=== PATIENT | male | born 1940 | race Caucasian/White ===

== ENCOUNTER 2017-10-26 13:10 | Emergency (ER) | payer OTHER ==
[~2017-10-26] VITALS: Ht 175.3 cm; Wt 133.6 kg
[2017-10-26 16:38] VITALS: BP 142/59
== END 2017-10-26 18:14 ==
LOC: EME 13:10
PROC: 0T2BX0Z Change Drainage Device in Bladder, External Approach (ICD-10-PCS; principal; 2017-10-26)
DX: T83.090A Other mechanical complication of cystostomy catheter, initial encounter (principal); N31.9 Neuromuscular dysfunction of bladder, unspecified; G89.29 Other chronic pain; Z86.12 Personal history of poliomyelitis; E66.01 Morbid (severe) obesity due to excess calories; Z68.41 Body mass index [BMI] 40.0-44.9, adult; Z85.46 Personal history of malignant neoplasm of prostate; Z92.3 Personal history of irradiation
CPT/HCPCS: 99281; 99285

== ENCOUNTER 2017-11-02 12:12 | Inpatient (IN) | payer OTHER ==
[~2017-11-02] VITALS: Ht 176.5 cm; Wt 127.8 kg
[2017-11-02 12:46] LABS: HEMATOCRIT 36.5 % (38.0-50.0); MCH 29.8 PG (29.0-34.0); MCHC 32.9 G/DL (30.0-36.0); MCV 90.6 FL (86-99); PLATELET COUNT 244 K/uL (156-360); RBC DIS.WIDTH-CV 13.5 % (11.8-14.6); RBC DIS.WIDTH-SD 44.4 % (39-53); RED BLOOD COUNT 4.03 M/uL (4.00-5.50); WHITE BLOOD COUNT 9.1 K/uL (4.1-10.2)
[2017-11-02 12:52] LABS: INTER. NORMALIZED RATIO 1.1
[2017-11-02 12:55] LABS: PTT 29.5 SEC (25-37)
[2017-11-02 12:58] LABS: CHLORIDE 102 mEq/L (99-109); POTASSIUM 4.3 mEq/L (3.7-5.4); SODIUM 142 mEq/L (136-147)
[2017-11-02 13:00] LABS: GLUCOSE 109 mg/dL (70-99)
[2017-11-02 13:04] LABS: CREATININE 0.6 mg/dL (0.6-1.3); GFR ESTIMATE (CALCULATED) > 59 mL/min/ (58.99-99999); UREA NITROGEN (BUN) 14 mg/dL (9-23)
[2017-11-02 13:06] LABS: CREATINE KINASE 17 IU/L (1-294)
[2017-11-02 13:07] LABS: TROP-I INTERPRETATION NEGATIVE; TROPONIN-I < 0.01 ng/mL (0.0-0.30)
[2017-11-02] MEDS ORDERED: K-DUR20 MEQ PO (14:58)
[2017-11-02] MEDS ORDERED: CATAPRES-TTS 11 EACH TD (14:59)
[2017-11-02] MEDS ORDERED: SPIRIVA18 MCG IH (15:00)
[2017-11-02] MEDS ORDERED: LASIX20 MG PO (15:00)
[2017-11-02] MEDS ORDERED: LOPRESSOR50 MG PO (15:01)
[2017-11-02] MEDS ORDERED: ASPIRIN325 MG PO (15:01)
[2017-11-02] MEDS ORDERED: CARDIZEM CD,CA240 MG PO (15:02)
[2017-11-02] MEDS ORDERED: PROBIOTIC250 MG PO (15:03)
[2017-11-02] MEDS ORDERED: COZAAR100 MG PO (15:03)
[2017-11-02] MEDS ORDERED: TYLENOL EXTRA500 MG PO (15:04)
[2017-11-02] MEDS ORDERED: LIPITOR10 MG PO (15:05)
[2017-11-02] MEDS ORDERED: AZELASTINE HCL6 ML BOTH EYES (15:06)
[2017-11-02] MEDS ORDERED: PRILOSEC20 MG PO (15:07)
[2017-11-02] MEDS ORDERED: PROVENTIL,2.5 MG/3 M IH (15:08)
[2017-11-02] MEDS ORDERED: ULTRAM50 MG PO (15:10)
[2017-11-02] MEDS ORDERED: MILK OF MAGN PO (15:10)
[2017-11-02] MEDS ORDERED: POLY-VITAMIN1 EACH PO (15:17)
[2017-11-02 18:13] VITALS: BP 181/77
[2017-11-02 19:44] VITALS: BP 169/72
[2017-11-02 23:54] VITALS: BP 146/74
[2017-11-03 03:47] VITALS: BP 139/65
[2017-11-03 07:15] VITALS: BP 142/78
[2017-11-03 07:54] VITALS: BP 164/74
[2017-11-03 11:25] VITALS: BP 145/67
[2017-11-04 04:20] VITALS: BP 145/65
[2017-11-04 05:49] LABS: HEMATOCRIT 32.7 % (38.0-50.0); HEMOGLOBIN 10.8 G/DL (12.5-16.6); MCV 90.6 FL (86-99)
[2017-11-04 08:30] VITALS: BP 140/78
[2017-11-04 12:05] VITALS: BP 140/88
[2017-11-04 16:35] VITALS: BP 142/78
[2017-11-04 19:58] VITALS: BP 166/72
[2017-11-04 23:35] VITALS: BP 137/63
[2017-11-05 04:12] VITALS: BP 159/70
[2017-11-05 05:52] LABS: BASOPHIL (%) 0.4 % (0-1); EOSINOPHIL (%) 2.7 % (0-5); EOSINOPHIL COUNT 0.2 K/uL (0-0.3); HEMATOCRIT 28.7 % (38.0-50.0); HEMOGLOBIN 9.4 G/DL (12.5-16.6); IMMATURE GRANULOCYTE (%) 0.3 % (0.0-0.7); LYMPHOCYTE (%) 21.4 % (15-42); LYMPHOCYTE COUNT 1.7 K/uL (1.0-2.8); MCHC 32.8 G/DL (30.0-36.0); MCV 91.7 FL (86-99); MONOCYTE (%) 12.3 % (3-12); NEUTROPHIL (%) 62.9 % (45-76); NEUTROPHIL COUNT 4.9 K/uL (1.8-6.4); PLATELET COUNT 225 K/uL (156-360); RBC DIS.WIDTH-SD 44.8 % (39-53); WHITE BLOOD COUNT 7.8 K/uL (4.1-10.2)
[2017-11-05 05:53] LABS: RED BLOOD COUNT 3.13 M/uL (4.00-5.50)
[2017-11-05 06:19] LABS: CHLORIDE 103 MEQ/L (99-109); CREATININE 0.5 MG/DL (0.6-1.3); GFR ESTIMATE (CALCULATED) > 59 mL/min/ (58.99-99999); GLUCOSE 117 mg/dL (70-99); POTASSIUM 3.8 MEQ/L (3.7-5.4); SODIUM 138 MEQ/L (136-147); UREA NITROGEN (BUN) 7 mg/dL (9-23)
[2017-11-05 08:53] VITALS: BP 148/68
[2017-11-05 16:00] VITALS: BP 158/62
[2017-11-05 19:47] VITALS: BP 139/61
[2017-11-05 23:33] VITALS: BP 129/60
[2017-11-06 04:11] VITALS: BP 143/64
[2017-11-06 05:57] LABS: BASOPHIL (%) 0.3 % (0-1); EOSINOPHIL (%) 3.1 % (0-5); EOSINOPHIL COUNT 0.3 K/uL (0-0.3); HEMATOCRIT 27.8 % (38.0-50.0); HEMOGLOBIN 9.1 G/DL (12.5-16.6); IMMATURE GRANULOCYTE (%) 0.3 % (0.0-0.7); LYMPHOCYTE (%) 19.7 % (15-42); LYMPHOCYTE COUNT 1.8 K/uL (1.0-2.8); MCH 29.7 PG (29.0-34.0); MCHC 32.7 G/DL (30.0-36.0); MCV 90.8 FL (86-99); MONOCYTE (%) 11.5 % (3-12); NEUTROPHIL (%) 65.1 % (45-76); NEUTROPHIL COUNT 5.8 K/uL (1.8-6.4); PLATELET COUNT 238 K/uL (156-360); RBC DIS.WIDTH-CV 14.2 % (11.8-14.6); RBC DIS.WIDTH-SD 46.1 % (39-53); RED BLOOD COUNT 3.06 M/uL (4.00-5.50)
[2017-11-06 06:21] LABS: CHLORIDE 101 MEQ/L (99-109); CREATININE 0.5 MG/DL (0.6-1.3); GFR ESTIMATE (CALCULATED) > 59 mL/min/ (58.99-99999); GLUCOSE 115 mg/dL (70-99); POTASSIUM 3.6 MEQ/L (3.7-5.4); SODIUM 137 MEQ/L (136-147); UREA NITROGEN (BUN) 10 mg/dL (9-23)
[2017-11-06 08:00] VITALS: BP 148/65
[2017-11-06 12:31] VITALS: BP 130/60
[2017-11-06] MEDS ORDERED: SENNA PLUS TAB1 EACH PO (13:08)
[2017-11-06] MEDS ORDERED: HYDROCODON-ACE1 EAC9 PO (13:09)
[2017-11-06] MEDS ORDERED: FERROUS SULFAT324 M1 PO (13:11)
[2017-11-06] MEDS ORDERED: XARELTO10 MG PO (13:13)
[2017-11-06 16:30] VITALS: BP 138/68
[2017-11-06 20:12] VITALS: BP 142/57
[2017-11-07] VITALS (7 sets, daily range): BP systolic 133–164; BP diastolic 50–74
[2017-11-08 03:42] VITALS: BP 134/63
[2017-11-08 07:55] VITALS: BP 118/58
[2017-11-08 12:18] VITALS: BP 122/64
[2017-11-08 16:30] VITALS: BP 128/74
[2017-11-08 20:00] VITALS: BP 133/62
[2017-11-09] VITALS: BP 151/67
[2017-11-09 03:58] VITALS: BP 136/63
[2017-11-09 11:30] VITALS: BP 134/62
[2017-11-09 16:12] VITALS: BP 132/68
[2017-11-09 19:37] VITALS: BP 143/64
[2017-11-09 23:40] VITALS: BP 139/65
[2017-11-10 03:51] VITALS: BP 140/63
[2017-11-10 08:17] VITALS: BP 134/60
[2017-11-10 09:51] LABS: CHLORIDE 101 MEQ/L (99-109); CREATININE 0.5 MG/DL (0.6-1.3); GFR ESTIMATE (CALCULATED) > 59 mL/min/ (58.99-99999); GLUCOSE 161 mg/dL (70-99); POTASSIUM 3.7 MEQ/L (3.7-5.4); SODIUM 139 MEQ/L (136-147); UREA NITROGEN (BUN) 13 mg/dL (9-23)
[2017-11-10 12:13] VITALS: BP 128/68
[2017-11-10 15:49] VITALS: BP 134/72
[2017-11-10 20:15] VITALS: BP 143/65
[2017-11-10 23:59] VITALS: BP 155/72
[2017-11-11 04:16] VITALS: BP 141/71
[2017-11-11 06:21] LABS: HEMOGLOBIN 9.1 G/DL (12.5-16.6); MCH 28.4 PG (29.0-34.0); MCHC 31.4 G/DL (30.0-36.0); MCV 90.6 FL (86-99); RBC DIS.WIDTH-CV 13.8 % (11.8-14.6); RBC DIS.WIDTH-SD 45.9 % (39-53); WHITE BLOOD COUNT 8.7 K/uL (4.1-10.2)
[2017-11-11 06:23] LABS: PLATELET COUNT 340 K/uL (156-360)
[2017-11-11 06:48] LABS: ALBUMIN 3.5 G/DL (3.2-4.8); ALKALINE PHOSPHATASE 122 IU/L (3-129); ALT (GPT) 21 IU/L (3-49); AST (GOT) 16 IU/L (2-34); CHLORIDE 101 MEQ/L (99-109); CREATININE 0.5 MG/DL (0.6-1.3); GFR ESTIMATE (CALCULATED) > 59 mL/min/ (58.99-99999); POTASSIUM 3.9 MEQ/L (3.7-5.4); SODIUM 137 MEQ/L (136-147); TOTAL BILIRUBIN 0.6 MG/DL (0.0-1.0); TOTAL PROTEIN 5.7 G/DL (6.4-8.3); UREA NITROGEN (BUN) 12 mg/dL (9-23)
[2017-11-11 06:49] LABS: GLUCOSE 116 mg/dL (70-99)
[2017-11-11 07:48] VITALS: BP 126/66
[2017-11-11 09:17] LABS: APPEARANCE SL.HAZY ((CLEAR)); BILIRUBIN NEGATIVE; BLOOD MODERATE; COLOR YELLOW ((YELLOW)); GLUCOSE (STRIP) NEGATIVE; KETONES NEGATIVE; LEUKOCYTES SMALL; NITRITE NEGATIVE; PROTEIN (STRIP) 100; SPECIFIC GRAVITY 1.011 (1.000-1.030); UROBILINOGEN 0.2 MG/DL (0.2-1.0)
[2017-11-11 09:28] LABS: BACTERIA RARE /HPF; CALCIUM OXALATE CRYSTALS 1+ /HPF; EPITHELIAL CELLS RARE /HPF; MUCUS 1+ /LPF; RED BLOOD CELLS 0-5 /HPF (0-5); UCUL ADDED? YES
[2017-11-11 16:28] VITALS: BP 130/58
[2017-11-12 00:19] VITALS: BP 126/60
[2017-11-12 08:00] VITALS: BP 140/67
[2017-11-13 00:31] VITALS: BP 156/67
[2017-11-13 08:19] VITALS: BP 144/70
[2017-11-13 16:44] VITALS: BP 144/78
[2017-11-14] VITALS: BP 129/60
[2017-11-14 08:34] VITALS: BP 138/62
[2017-11-14 17:29] VITALS: BP 158/52
[2017-11-14 20:21] VITALS: BP 140/80
[2017-11-14 23:45] VITALS: BP 137/70
[2017-11-15 08:30] VITALS: BP 120/60
[2017-11-15 16:04] VITALS: BP 140/62
[2017-11-15 23:30] VITALS: BP 139/61
[2017-11-16 07:30] VITALS: BP 131/60
[2017-11-16 15:02] VITALS: BP 120/60
[2017-11-17 00:43] VITALS: BP 127/60
[2017-11-17 06:08] LABS: BASOPHIL (%) 0.4 % (0-1); EOSINOPHIL (%) 4.3 % (0-5); EOSINOPHIL COUNT 0.4 K/uL (0-0.3); HEMATOCRIT 30.6 % (38.0-50.0); HEMOGLOBIN 9.7 G/DL (12.5-16.6); IMMATURE GRANULOCYTE (%) 0.4 % (0.0-0.7); LYMPHOCYTE (%) 18.5 % (15-42); LYMPHOCYTE COUNT 1.9 K/uL (1.0-2.8); MCH 28.3 PG (29.0-34.0); MCHC 31.7 G/DL (30.0-36.0); MCV 89.2 FL (86-99); MONOCYTE (%) 7.8 % (3-12); MONOCYTE COUNT 0.8 K/uL (0-0.8); NEUTROPHIL (%) 68.6 % (45-76); NEUTROPHIL COUNT 6.9 K/uL (1.8-6.4); PLATELET COUNT 323 K/uL (156-360); RBC DIS.WIDTH-SD 45.4 % (39-53); RED BLOOD COUNT 3.43 M/uL (4.00-5.50); WHITE BLOOD COUNT 10.1 K/uL (4.1-10.2)
[2017-11-17 06:34] LABS: CHLORIDE 104 MEQ/L (99-109); CREATININE 0.4 MG/DL (0.6-1.3); GFR ESTIMATE (CALCULATED) > 59 mL/min/ (58.99-99999); GLUCOSE 121 mg/dL (70-99); SODIUM 141 MEQ/L (136-147); UREA NITROGEN (BUN) 13 mg/dL (9-23)
[2017-11-17 08:13] VITALS: BP 170/62
[2017-11-17 15:53] VITALS: BP 150/65
[2017-11-18 00:09] VITALS: BP 126/60
[2017-11-18 08:22] VITALS: BP 142/64
[2017-11-18 16:45] VITALS: BP 139/63
== END 2017-11-18 17:47 | DRG 481 ==
LOC: EME 12:12 → ENRESERV 16:39 → EDOF 16:42 → 3EAST 16:42 → ENRESERV 17:19 → 3EAST 17:41
PROVIDERS: Emergency Medicine; Family Medicine; Internal Medicine; Orthopaedic Surgery
PROC: 0QS606Z Reposition Right Upper Femur with Intramedullary Internal Fixation Device, Open Approach (ICD-10-PCS; principal; 2017-11-03)
DX: S72.21XA Displaced subtrochanteric fracture of right femur, initial encounter for closed fracture (principal); G81.91 Hemiplegia, unspecified affecting right dominant side; G82.20 Paraplegia, unspecified; H33.21 Serous retinal detachment, right eye; Z68.41 Body mass index [BMI] 40.0-44.9, adult; W17.89XA Other fall from one level to another, initial encounter; E78.00 Pure hypercholesterolemia, unspecified; I10 Essential (primary) hypertension; J44.9 Chronic obstructive pulmonary disease, unspecified; J06.9 Acute upper respiratory infection, unspecified; E66.9 Obesity, unspecified; K21.9 Gastro-esophageal reflux disease without esophagitis; K59.00 Constipation, unspecified; G14 Postpolio syndrome; H54.61 Unqualified visual loss, right eye, normal vision left eye; I25.10 Atherosclerotic heart disease of native coronary artery without angina pectoris; I45.10 Unspecified right bundle-branch block; J20.9 Acute bronchitis, unspecified; R60.0 Localized edema; R15.9 Full incontinence of feces; Z87.891 Personal history of nicotine dependence; Y93.F2 Activity, caregiving, lifting; Y92.129 Unspecified place in nursing home as the place of occurrence of the external cause; Z86.14 Personal history of Methicillin resistant Staphylococcus aureus infection; Z74.01 Bed confinement status; Z91.040 Latex allergy status; Z88.5 Allergy status to narcotic agent; Z91.012 Allergy to eggs; Z90.79 Acquired absence of other genital organ(s); Z85.828 Personal history of other malignant neoplasm of skin; Z85.46 Personal history of malignant neoplasm of prostate; Z83.3 Family history of diabetes mellitus; Z82.49 Family history of ischemic heart disease and other diseases of the circulatory system; Z80.1 Family history of malignant neoplasm of trachea, bronchus and lung
CPT/HCPCS: 71045; 73502; 73552; 76000; 80048; 80053; 81003; 82550; 82948; 84484; 85014; 85018; 85025; 85027; 85610; 85730; 86850; 86900; 86901; 87086; 93005; 94010; 94640; 94640 76; 94799; 97530 GP; 99202; 99281; 99285; C1713; J1650; J2370; J3010; J3370; J7030; J7120